=== PATIENT | male | born 1950 | race Caucasian/White ===

== ENCOUNTER 2017-06-26 16:41 | Emergency (ER) | payer MEDICARE, SELFPAY | END 2017-06-26 19:00 | disposition home or self-care (01) | PROVIDERS: Emergency Provider Emergency Medicine; Family Provider Student in an Organized Health Care Education/Training Program; PCP Student in an Organized Health Care Education/Training Program; Visit Provider Emergency Medicine | DX: R07.9 Chest pain, unspecified (principal) | CPT/HCPCS: 71010; 71045; 84484; 85025; 85379; 85610; 85730; 93005; 93010; 93016; 93017; 93018; 99058; 99285 ==